=== PATIENT | female | born 1985 | race Caucasian/White ===

== ENCOUNTER 2017-06-24 14:40 | Emergency (ER) | payer OTHER ==
[~2017-06-24] VITALS: Ht 152.4 cm; Wt 77.1 kg
--- NOTE | 2017-06-24 16:13 | NUR ---
Patient discharged to home in stable conditon. Written and verbal after care instructions given. Patient verbalizes understanding of instructions.pt using own wheel chair. pt accmpaned christopher perea friend
== END 2017-06-24 16:15 | disposition home or self-care (01) ==
LOC: ER 14:41
DX: S20.219A Contusion of unspecified front wall of thorax, initial encounter (principal); G80.9 Cerebral palsy, unspecified; Z99.3 Dependence on wheelchair; X50.9XXA Other and unspecified overexertion or strenuous movements or postures, initial encounter; Y93.89 Activity, other specified; Y92.9 Unspecified place or not applicable; Y99.9 Unspecified external cause status
CPT/HCPCS: 71010; A4663